=== PATIENT | male | born 1960 | race American Indian/Alaskan Native ===

== ENCOUNTER 2016-08-25 08:55 | Outpatient (CLI) | payer OTHER ==
--- NOTE | 2016-08-25 09:59 | Ultrasound Report ---
TESTICULAR ULTRASOUND WITH DUPLEX DOPPLER ULTRASOUND: 08/25/16 CLINICAL: Right scrotal pain. FINDINGS: High resolution ultrasound demonstrated normal testes with normal size and contours. 2 benign-appearing calcifications in the right testis and one benign-appearing calcification in the left testis. Testicular echogenicity is otherwise normal. No testicular mass. The right testis measured 4.4 x 2.4 x 2.8cm. The left testis measured 4.7 x 2.4 x 2.7cm. Both testes and epididymes demonstrated normal blood flow by color and duplex Doppler with normal spectral waveforms. The right epididymis is moderately enlarged particularly in the body. The left epididymis is normal size but contains a single 4 mm cyst. Moderate size bilateral hydroceles. Moderate bilateral scrotal wall thickening. No inguinal hernia identified. IMPRESSION: 1. Moderate right epididymal enlargement consistent with acute or chronic epididymitis. The blood flow pattern is more typical of a chronic epididymitis. 2. No evidence of testicular torsion. 3. Bilateral hydroceles and moderate scrotal wall thickening.
== END 2016-08-25 08:56 | disposition home or self-care (01) ==
LOC: SPVWC 08:55
PROVIDERS: ATTEND Internal Medicine
DX: N50.3 Cyst of epididymis (principal); N43.3 Hydrocele, unspecified; N50.89 Other specified disorders of the male genital organs
CPT/HCPCS: 93975